=== PATIENT | female | born 1975 | race Caucasian/White ===

== ENCOUNTER 2017-02-15 20:24 | Emergency (ER) | payer MEDICAID ==
[2017-02-15 21:50] LABS: BASOPHILS 0 % (0-2); EOSINOPHILS 2.5 % (0-7); HEMOGLOBIN 14.4 g/dL (12-16); IMMATURE GRANULOCYTES 0.2 % (0-5); LYMPHOCYTES 26.2 % (15-50); MCH 28.6 pg (26.0-34.0); MCHC 33.5 g/dL (31.0-37.0); MCV 85.3 fL (80.0-100.0); MEAN PLATELET VOLUME 8.9 fL (7.4-10.4); MONOCYTES 10.7 % (2-11); NEUTROPHILS 60.4 % (40-80); PLATELET COUNT 299 10x3/uL (130-400); RBC 5.04 10x6/uL (4.00-5.40); RDW 12.8 % (11.5-14.5); WBC 6.3 10x3/uL (4.8-10.8)
[2017-02-15 22:06] LABS: ALBUMIN 3.1 g/dL (3.4-5.0); ALKALINE PHOSPHATASE 62 U/L (46-116); ALT (SGPT) 28 U/L (10-68); BILIRUBIN - TOTAL 0.22 mg/dL (0.2-1.3); CALC OSMOLALITY 276 mosm/kg (275-300); CALCIUM 8.7 mg/dL (8.5-10.1); CARBON DIOXIDE 31.9 mmol/L (21.0-32.0); CHLORIDE - SERUM 102 mmol/L (98-107); CREATININE - SERUM 0.6 mg/dL (0.6-1.3); GLUCOSE 97 mg/dL (74-106); POTASSIUM - SERUM 4.2 mmol/L (3.5-5.1); PROTEIN - SERUM 7.2 g/dL (6.4-8.2); SODIUM 139 mmol/L (136-145); UREA NITROGEN 9 mg/dL (7-18); eGFR NON AFRICAN AMERICAN > 90 mL/min (90-120)
[2017-02-15 22:17] LABS: CREATINE KINASE 53 UL (21-215)
[2017-02-15 22:20] LABS: TROPONIN-I < 0.017 ng/mL (0.000-0.060)
== END 2017-02-15 23:00 | disposition home or self-care (01) ==
LOC: D.ER 20:24
PROVIDERS: Family Medicine
DX: M94.0 Chondrocostal junction syndrome [Tietze] (principal)

== ENCOUNTER 2020-11-28 11:14 | Inpatient (IN) | payer BC ==
[~2020-11-28] VITALS: Ht 162.6 cm; Wt 49.9 kg
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
[2020-11-28 12:13] LABS: BASOPHILS 0 % (0-2); EOSINOPHILS 0.8 % (0-7); HEMOGLOBIN 10.9 g/dL (12-16); IMMATURE GRANULOCYTES 0.2 % (0-5); LYMPHOCYTE ABS# 1.02 10x3/uL (1.18-3.74); LYMPHOCYTES 11.1 % (15-50); MCHC 29.5 g/dL (31.0-37.0); MCV 74.7 fL (80.0-100.0); MEAN PLATELET VOLUME 9.3 fL (7.4-10.4); MONOCYTES 7.4 % (2-11); NEUTROPHIL ABS# 7.39 10x3/uL (1.56-6.13); NEUTROPHILS 80.5 % (40-80); PLATELET COUNT 318 10x3/uL (130-400); RBC 4.95 10x6/uL (4.00-5.40); WBC 9.2 10x3/uL (4.8-10.8)
--- NOTE | 2020-11-28 12:20 | NUR ---
LACERATION TO LEFT ELBOW CLEANED AND DRESSED WITH DRY 4X4S. PATIENT HAS HEARING AID IN AND IS ABLE TO HEAR WELL.
[2020-11-28 12:28] LABS: APTT 23.2 SECONDS (22.8-39.4); INR 1.11 (0.85-1.17); PROTIME 13.3 SECONDS (11.6-15.0)
[2020-11-28 12:49] LABS: CALC OSMOLALITY 276 mosm/kg (275-300); CALCIUM 8.7 mg/dL (8.5-10.1); CARBON DIOXIDE 27.7 mmol/L (21.0-32.0); CHLORIDE - SERUM 105 mmol/L (98-107); CREATININE - SERUM 0.6 mg/dL (0.6-1.3); GLUCOSE 89 mg/dL (74-106); POTASSIUM - SERUM 4.8 mmol/L (3.5-5.1); SODIUM 140 mmol/L (136-145); UREA NITROGEN 11 mg/dL (7-18); eGFR NON AFRICAN AMERICAN > 90 mL/min (90-120)
[2020-11-28 12:54] LABS: ALBUMIN 3.5 g/dL (3.4-5.0); ALKALINE PHOSPHATASE 51 U/L (30-120); ALT (SGPT) 49 U/L (10-68); BILIRUBIN - TOTAL 0.37 mg/dL (0.2-1.3); PROTEIN - SERUM 7.2 g/dL (6.4-8.2)
--- NOTE | 2020-11-28 14:26 | NUR ---
ICE PACKS APPLIED TO RIGHT LOWER LEG BELOW SPLINT AND ON LEFT ELBOW. SOCKS APPLIED, C/O COLD FEET.
[2020-11-28 17:05] VITALS: BMI 18.9
--- NOTE | 2020-11-28 17:29 | NUR ---
PATIENT TO ROOM WITH IV INTACT. NO COMPLAINTS OR SIGNS OF DISTRESS. IMMOBILIZER TO RIGHT LOWER EXT. SPLINT TO LEFT ARM. ASSISTED PATIENT TO BR AND BACK TO BED. ADMITTED AND ASSESSED. DUODERM PLACED OVER SCRAPE ON BUTTOCKS. WILL CONTINUE TO MONITOR. CALL LIGHT WITHIN REACH.
[2020-11-28] MEDS ORDERED: ATIVAN1 MG PO (17:54)
[2020-11-28] MEDS ORDERED: HYDROCODON-ACE1 EA10 PO (17:55)
[2020-11-28] MEDS ORDERED: XANAX1 MG PO (17:57)
[2020-11-28] MEDS ORDERED: BUTALB-APAP-CA1 EACH PO (18:00)
[2020-11-28] MEDS ORDERED: OXYBUTYNIN CHLOR5 MG PO (18:03)
[2020-11-28] MEDS ORDERED: NEURONTIN 300300 MG PO (18:04)
--- NOTE | 2020-11-28 18:50 | NUR ---
PATIENT IN BED WITH IV INTACT. STATED SHE IS HAVING ANXIETY. WILL NOTIFY AYAAN TO SEE IF SHE CAN HAVE ATIVAN. GAVE IV MORPHINE FOR PAIN. DOESNT WANT SCDS ON AT THIS TIME BECAUSE SHE SAYS SHE IS JUST TOO ANXIOUS AND DOESNT WANT ANYTHING ELSE ON HER. SITTING UP IN BED DRINKING BROTH. TOOK SOME OF HER SHANNEN WRAP OFF OF HER HAND. STATED SHE KNEW SHE WASNT SUPPOSE TO BUT SHE CANT STAND IT BEING WRAPPED UP. REPORT GIVEN TO NIGHT NURSE. CALL LIGHT WITHIN REACH.
[2020-11-28 20:00] VITALS: BP 106/75
--- NOTE | 2020-11-28 20:15 | NUR ---
SITTING UP IN BED. NO COMPLAINTS VOICED. RESP UNALBORED. CL IN REACH
--- NOTE | 2020-11-29 00:30 | NUR ---
REFUSING LAB TO BE DRAWN AT THIS TIME.
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
[2020-11-29 07:00] VITALS: BP 98/50
--- NOTE | 2020-11-29 07:52 | NUR ---
SITTING UP IN BED WITH EYES OPEN, ALERT AND ORIENTED WITH A FRIEND AT THE BEDSIDE. IV LOCATED TO RIGHT ARM CURRENTLY RUNNING NS @ 50ML. PT REQUESTING MORPHINE BUT BP IS 98/50, INFORMED PT THAT I CANNOT GIVE HER MORPHINE WITH THAT BP, WOULD RECHECK HER IN A LITTLE BIT. NO CURRENT S/S OF DISTRESS, DENIES NEEDS OTHER THAN MORPHINE, WILL CONT TO MONITOR.
--- NOTE | 2020-11-29 09:50 | NUR ---
INSTRUCTED PT THAT WE NEEDED A URINE SAMPLE AND EDUCATED ON HOW TO PROPERLY COLLECT. WILL CONT TO MONITOR.
--- NOTE | 2020-11-29 10:17 | NUR ---
EMERGENCY DEPARTMENT RN JULIA SPOKE WITH YANA WATTS ABOUT PTS REQUEST FOR MORPHINE WITH CONTINUED LOW BP.S, WAS INSTRUCTED TO START A FLUID BOLUS AND THEN ADMINISTER 2MG MORPHINE AFTER THE BOLUS IS COMPLETE. WILL CONT TO MONITOR.
--- NOTE | 2020-11-29 10:50 | NUR ---
ADMINISTERED MORPHINE 2MG PER YANA WATTS'S ORDER. WILL CONT TO MONITOR.
[2020-11-29 12:18] LABS: BILIRUBIN NEGATIVE (NEGATIVE); KETONE NEGATIVE (NEGATIVE); NITRITE POSITIVE (NEGATIVE); UROBILINOGEN NORMAL mg/dL (< 2)
[2020-11-29 12:19] LABS: BACTERIA MANY HPF (NONE SEEN); SQUAMOUS EPITHELIAL 0-5 HPF (0-4)
[2020-11-29 12:26] LABS: UDS - AMPHET POSITIVE QUAL (NEGATIVE); UDS - BARB NEGATIVE QUAL (NEGATIVE); UDS - BENZO POSITIVE QUAL (NEGATIVE); UDS - COCAINE NEGATIVE QUAL (NEGATIVE); UDS - OPIATE POSITIVE QUAL (NEGATIVE); UDS - PCP NEGATIVE QUAL (NEGATIVE); UDS - THC NEGATIVE QUAL (NEGATIVE)
[2020-11-29 13:37] LABS: HCG URINE NEGATIVE (NEGATIVE)
[2020-11-29 17:37] VITALS: BP 114/60
[2020-11-29 20:42] VITALS: BP 117/63
--- NOTE | 2020-11-29 23:41 | NUR ---
I have reviewed this patient and I concur with the Shift Assessment completed by the Licensed Practical Nurse today this shift.
--- NOTE | 2020-11-30 05:33 | NUR ---
PATIENT REFUSES TO HAVE BLOOD DRAWN AGAIN TODAY.HAS BEEN INCONTINENT OF URINE X 2 THIS SHIFT
[2020-11-30 07:07] LABS: BASOPHILS 0 % (0-2); EOSINOPHILS 2.9 % (0-7); LYMPHOCYTE ABS# 1.25 10x3/uL (1.18-3.74); LYMPHOCYTES 28.3 % (15-50); MCH 21.8 pg (26.0-34.0); MCHC 29.8 g/dL (31.0-37.0); MCV 73.2 fL (80.0-100.0); MEAN PLATELET VOLUME 9.2 fL (7.4-10.4); MONOCYTES 12.5 % (2-11); NEUTROPHIL ABS# 2.48 10x3/uL (1.56-6.13); NEUTROPHILS 56.3 % (40-80); RDW 15.2 % (11.5-14.5)
[2020-11-30 07:18] LABS: ALBUMIN 2.6 g/dL (3.4-5.0); ALKALINE PHOSPHATASE 39 U/L (30-120); ALT (SGPT) 31 U/L (10-68); BILIRUBIN - TOTAL 0.19 mg/dL (0.2-1.3); CALC OSMOLALITY 276 mosm/kg (275-300); CALCIUM 8.3 mg/dL (8.5-10.1); CHLORIDE - SERUM 108 mmol/L (98-107); CREATININE - SERUM 0.5 mg/dL (0.6-1.3); GLUCOSE 96 mg/dL (74-106); MAGNESIUM - SERUM 1.8 mg/dL (1.8-2.4); PHOSPHOROUS 3.6 mg/dL (2.5-4.9); POTASSIUM - SERUM 3.4 mmol/L (3.5-5.1); PROTEIN - SERUM 5.4 g/dL (6.4-8.2); SODIUM 140 mmol/L (136-145); UREA NITROGEN 7 mg/dL (7-18); eGFR NON AFRICAN AMERICAN > 90 mL/min (90-120)
[2020-11-30 07:28] LABS: HEMATOCRIT 28.2 % (36.0-48.0); HEMOGLOBIN 8.4 g/dL (12-16); PLATELET COUNT 217 10x3/uL (130-400); RBC 3.85 10x6/uL (4.00-5.40); WBC 4.4 10x3/uL (4.8-10.8)
--- NOTE | 2020-11-30 08:04 | NUR ---
UPON THIS NURSE ENTERING PT ROOM SHE WAS NOTED STANDING UP AT BEDSIDE WITH BRACE OFF OF LEG WITH FAMILY/FRIEND IN ROOM WITH PT. NO C/O NOTED AT THIS TIME. PT STATED THAT " I AM GOING TO WALK OUTSIDE." THIS NURSE INFORMED PT THAT D/T POLICY NO PT IS ALLOWED OUTSIDE D/T COVID. PT VOICED UNDERSTANDING CALL LIGHT IN REACH AT BEDSIDE.
--- NOTE | 2020-11-30 08:07 | NUR ---
THIS NURSE WAS SITTING AT NURSING STATION AND HERE COMES PT WALKING DOWN HALLWAY WITH FAMILY/FRIEND WITHOUT HER MASK ON AND HAS UNHOOKED HERSELF FROM HER IV AFTER THIS NURSE JUST HOOKED HER BACK UP. TECHNOLOGY AUDITOR WAS MADE AWARE AND ALSO OBSERVE PT LEAVING FLOOR.
[2020-11-30 10:18] VITALS: BP 118/67
[2020-11-30 14:00] VITALS: BP 112/62
--- NOTE | 2020-11-30 16:30 | NUR ---
OT NOTE: PT COMPLETED SUPINE TO SIT WITH SBA. PT COMPLETED SIT TO STAND WITH MIN A USING RW. PT COMPLETED TOILETING WITH SBA. PT COMPLETED TOILET HYGIENE WITH SBA. PT COMPLETED HAND HYGIENE WITH SBA. [phone] PAUL STOKES COTA
[2020-11-30 17:54] VITALS: BP 111/66
--- NOTE | 2020-11-30 18:35 | NUR ---
IN BED, DENIES NEEDS AT THIS TIME. BED LOW POSITION, CALL LIGHT IN REACH. FREE FROM SIGNS OF DISTRESS. WILL CONTINUE TO MONITOR.
--- NOTE | 2020-11-30 19:45 | NUR ---
RECEIVED BEDSIDE REPORT. PT LAYING IN BED A&O X4. PIV TO RIGHT FOREARM PATENT AND INFUSING, NO REDNESS OR SWELLING. BRACE TO RLE. RUE IN SPLINT, SHANNEN WRAP IN PLACE. BRUISES TO RIGHT FLANK AND BUTTOCKS. PT ABLE TO AMBULATE AD MAX. EDUCTAED PT ON CL AND NEEDS, VERBALIZED UNDERSTANDING. BED LOW, CL IN REACH.
[2020-11-30 20:00] VITALS: BP 109/63
[2020-12-01] VITALS: BP 108/49
--- NOTE | 2020-12-01 00:23 | NUR ---
CHANGED DRSG TO RUE SPLINT. APPLIED NEW SHANNEN WRAP. PT TOLERATED WELL. BED LOW, CL IN REACH.
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
[2020-12-01 04:00] VITALS: BP 102/57
[2020-12-01 06:10] LABS: BASOPHILS 0.3 % (0-2); EOSINOPHILS 2.6 % (0-7); HEMATOCRIT 26.9 % (36.0-48.0); HEMOGLOBIN 8.6 g/dL (12-16); LYMPHOCYTES 28.8 % (15-50); MCH 22.6 pg (26.0-34.0); MCHC 32.2 g/dL (31.0-37.0); MEAN PLATELET VOLUME 8.2 fL (7.4-10.4); MONOCYTES 8.9 % (2-11); NEUTROPHILS 59.4 % (40-80); PLATELET COUNT 183 10x3/uL (130-400); RBC 3.82 10x6/uL (4.00-5.40); RDW 15.9 % (11.5-14.5); WBC 5.3 10x3/uL (4.8-10.8)
[2020-12-01 06:22] LABS: MCV 70.3 fL (80.0-100.0)
--- NOTE | 2020-12-01 07:25 | NUR ---
REC'D IN ROOM AWAKE AND ALERT. RESP EVEN AND UNLABORED WITH NO DISTRESS NOTED OR VOICED. CAN EXPRESS NEEDS AND WANTS. NO C/O NOTED OR VOICED. ASSESSMENT COMPLETED. C/L IN REACH AT BEDSIDE.
[2020-12-01 07:27] LABS: ALBUMIN 2.7 g/dL (3.4-5.0); ALKALINE PHOSPHATASE 38 U/L (30-120); ALT (SGPT) 31 U/L (10-68); BILIRUBIN - TOTAL 0.25 mg/dL (0.2-1.3); CALC OSMOLALITY 279 mosm/kg (275-300); CHLORIDE - SERUM 107 mmol/L (98-107); CREATININE - SERUM 0.6 mg/dL (0.6-1.3); GLUCOSE 92 mg/dL (74-106); PHOSPHOROUS 3.5 mg/dL (2.5-4.9); POTASSIUM - SERUM 3.6 mmol/L (3.5-5.1); PROTEIN - SERUM 5.8 g/dL (6.4-8.2); SODIUM 141 mmol/L (136-145); UREA NITROGEN 10 mg/dL (7-18); eGFR NON AFRICAN AMERICAN > 90 mL/min (90-120)
[2020-12-01 10:02] VITALS: BP 106/66
[2020-12-01 14:48] VITALS: BP 113/70
--- NOTE | 2020-12-01 16:30 | NUR ---
OT NOTE: UPON ENTERING..PT IS NAKED AND HAS REMOVED UE SPLINT AND LE IMMOBILIZER. NOTIFIED NURSING. PT REQUIRED TOTAL A TO EMILIE LE IMMOBILIZER. PT REQUIRED SBA FOR DRYING OFF. PT REQUIRED MIN A FOR POSITIONING IN BED. PT EDUCATED ON THE IMPORTANCE OF ADHERING TO MEDICAL/ORTHOTIC PRECAUTIONS. [id number] THANK YOU, ISRAEL MANCINI
[2020-12-01 17:21] VITALS: BP 102/64
[2020-12-01 20:00] VITALS: BP 107/58; BP 116/67
--- NOTE | 2020-12-01 22:34 | NUR ---
RECEIVED BEDSIDE REPORT. PT LAYING IN BED A&O X4. PIV TO RIGHT FOREARM PATENT AND INFUSING, NO REDNESS OR SWELLING. BRACE TO RLE. SLING TO LUE. BRUISES TO BUTTOCKS. EDUCATED PT ON CL AND NEEDS, VERBALIZED UNDERSTANDING. BED LOW, CL IN REACH.
[2020-12-02 04:00] VITALS: BP 97/49
[2020-12-02 06:10] LABS: BASOPHILS 0.2 % (0-2); EOSINOPHILS 2.3 % (0-7); HEMATOCRIT 28.5 % (36.0-48.0); LYMPHOCYTES 18.7 % (15-50); MCH 21.9 pg (26.0-34.0); MCHC 31.5 g/dL (31.0-37.0); MCV 69.6 fL (80.0-100.0); MEAN PLATELET VOLUME 8.1 fL (7.4-10.4); MONOCYTES 10.3 % (2-11); NEUTROPHILS 68.5 % (40-80); PLATELET COUNT 214 10x3/uL (130-400); RDW 15.9 % (11.5-14.5); WBC 5.9 10x3/uL (4.8-10.8)
[2020-12-02 06:20] LABS: ALBUMIN 2.8 g/dL (3.4-5.0); ALKALINE PHOSPHATASE 40 U/L (30-120); ALT (SGPT) 31 U/L (10-68); BILIRUBIN - TOTAL 0.33 mg/dL (0.2-1.3); CALC OSMOLALITY 275 mosm/kg (275-300); CALCIUM 8.1 mg/dL (8.5-10.1); CARBON DIOXIDE 27.2 mmol/L (21.0-32.0); CHLORIDE - SERUM 106 mmol/L (98-107); CREATININE - SERUM 0.6 mg/dL (0.6-1.3); GLUCOSE 83 mg/dL (74-106); MAGNESIUM - SERUM 2.2 mg/dL (1.8-2.4); PHOSPHOROUS 3.7 mg/dL (2.5-4.9); POTASSIUM - SERUM 3.5 mmol/L (3.5-5.1); PROTEIN - SERUM 6.1 g/dL (6.4-8.2); SODIUM 140 mmol/L (136-145); UREA NITROGEN 8 mg/dL (7-18); eGFR NON AFRICAN AMERICAN > 90 mL/min (90-120)
--- NOTE | 2020-12-02 07:43 | NUR ---
RESTING IN BED WITH EYES OPEN, ALERT AND ORIENTED. IV LOCATED TO RIGHT FA CURRENTLY RUNNING NS @ 50ML/HR. BRACE LOCATED TO RIGHT LEG, SLING LOCATED TO LEFT ARM. NO CURRENT S/S OF DISTRESS AT THIS TIME, DENIES NEEDS OTHER THAN PAIN MEDICATION THAT I WILL TAKE IN EMI, WILL CONT TO MONITOR.
[2020-12-02 08:39] VITALS: BP 99/45
[2020-12-02 10:13] LABS: HEPATITIS C ANTIBODY >11.0 S/CO RAT (0.0-0.9)
[2020-12-02 12:34] VITALS: BP 110/65
--- NOTE | 2020-12-02 15:11 | NUR ---
OT NOTE: PT IN BED WITH IMMOBILIZER DOWN AROUND LOWER LEG.. RE ADJUSTED AND EXPLAINED AGAIN FOR THE REASONING FOR LOCATION OF IMMOBILIZER.. ALSO NOTED THAT HINGED ELBOW BRACE WAS VERY LOOSE.. ADJUSTED BRACE AND PT ASKED IF IT WAS IN THE CORRECT SETTING . TOLD PT THAT WE WOULD LEAVE IT SET WHERE DR HAS IT.. PT THEN TOLD ME THAT SHE HAD BEEN CHANGING IT ALL DAY.. CHECKED CHART FOR CORRECT MEASUREMENTS BUT UNABLE TO FIND.. INFORMED NURSING WHO STATED THAT SHE HAD BEEN TAKING IT ON AND OFF ALL DAY AND CHANGING THE SETTINGS. ASSISTED PT TO BATHROOM WITH MIN ASSIST. PT ASKING WHAT HER MRI RESULTS WERE.. EXPLAINED THAT I WAS UNSURE BUT HER NURSE OF PHYSICIAN COULD LET HER KNOW.. DARION SOLIS, OTR/L [phone]
[2020-12-02 16:54] VITALS: BP 106/56
[2020-12-02 20:00] VITALS: BP 112/65
--- NOTE | 2020-12-02 20:00 | NUR ---
PT SITTING UP IN BED WITHOUT DISTRESS, AOX4. REQUESTING PAIN MEDICATION. STATES PAIN "EVERYWHERE" 10/10. STATES SHE IS ALWAYS 10/10. NORCO GIVEN. PROVIDED ICE UPON REQUEST. DENIES OTHER NEEDS. CL IN REACH
[2020-12-03] VITALS: BP 109/67
[2020-12-03 04:00] VITALS: BP 91/50
--- NOTE | 2020-12-03 05:30 | NUR ---
PT REFUSED TO HAVE LABS DRAWN THIS AM, STATES SHE IS "TIRED OF BEING STUCK"
[2020-12-03 08:25] VITALS: BP 136/89; BP 90/47
[2020-12-03 12:26] VITALS: Ht 162.6 cm; Wt 49.9 kg
[2020-12-03 12:50] VITALS: BP 111/60
[2020-12-03] MEDS ORDERED: ROBAXIN PO (13:18)
[2020-12-03] MEDS ORDERED: HYDROCODON-ACE1 EA10 PO (13:18)
[2020-12-03] MEDS ORDERED: LEVAQUIN750 MG PO (13:30)
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
[2020-12-03] MEDS ORDERED: TOFRANIL25 MG PO (14:32)
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
== END 2020-12-03 17:45 | disposition home health service (06) | DRG 184 ==
LOC: D.ER 11:14 → D.MS 13:22 → OBSVTIME 13:22 → D.MS 11-29 17:03
PROVIDERS: Family Medicine; Family Medicine Adult Medicine; ADMIT Emergency Medicine; ATTEND Emergency Medicine
DX: S22.41XA Multiple fractures of ribs, right side, initial encounter for closed fracture (principal); S42.401A Unspecified fracture of lower end of right humerus, initial encounter for closed fracture; N39.0 Urinary tract infection, site not specified; S82.831A Other fracture of upper and lower end of right fibula, initial encounter for closed fracture; S62.300A Unspecified fracture of second metacarpal bone, right hand, initial encounter for closed fracture; S62.181A Displaced fracture of trapezoid [smaller multangular], right wrist, initial encounter for closed fracture; Y08.09XA Assault by strike by other specified type of sport equipment, initial encounter; N20.0 Calculus of kidney; F15.90 Other stimulant use, unspecified, uncomplicated; F11.90 Opioid use, unspecified, uncomplicated; Z72.89 Other problems related to lifestyle; B19.20 Unspecified viral hepatitis C without hepatic coma